=== PATIENT | male | born 1995 | race Caucasian/White ===

== ENCOUNTER 2020-03-29 22:24 | Inpatient (IN) | payer OTHER ==
[2020-03-29 23:32] VITALS: BMI 32.9
--- NOTE | 2020-03-29 23:43 | HP ---
COWS - Scale Resting Pulse: 1= [place] 81-100 Sweatin= Chills/Flushing Restless Observation: 0= Sits Still Pupil Size: 0= Normal to Room Light Bone or Joint Aches: 2= Severe Diffuse Aches Runny Nose/ Eye Tearin= None GI Upset > 30mins: 3= Vomiting/Diarrhea (vomiting x 4, no diarrhea) Tremor Observation: 2= Slight Tremor Visible Yawning Observation: 0= None Anxiety or Irritability: 2=Irritable/Anxious Goose Flesh Skin: 0=Smooth Skin COWS Score: 11 CIWA Score - Admission Criteria OASAS Guidelines: Admission for Medically Managed Detox: Requires at least one of the followin. CIWA greater than 12 2. Seizures within the past 24 hours 3. Delirium tremens within the past 24 hours 4. Hallucinations within the past 24 hours 5. Acute intervention needed for co occurring medical disorder 6. Acute intervention needed for co occurring psychiatric disorder 7. Severe withdrawal that cannot be handled at a lower level of care (continued vomiting, continued diarrhea, abnormal vital signs) requiring intravenous medication and/or fluids 8. Admission ROS [facility] Chief Complaint: seeking admission to detox from heroin Allergies/Adverse Reactions: Allergies Allergy/AdvReac Type Severity Reaction Status Date / Time No Known Allergies Allergy Verified 04/07/19 14:21 History of Present Illness: 24 years old male is seeking admission to detox. This is his first admission to [facility]. He reports that he is in the [facility] outpatient program and does not want to continue with suboxone program. He reports that his counselor, Mr. dario Calvillo notified the program that he will not continue His urine is positive for FEN and MOP. He reports use of 2o bags heroin intravenously. He has medical history Hep. C, eczema and psych. history of depression, ADHD, PTSD and anxiety. He reports suicide attempt at age 12 and denies suicidal ideation at this time. He is unemployed, lives with his parents and denies legal issues. He reports that he overdosed 3 times, last time he overdosed was 2 days ago ( 03/27/2020). He has multiple scabs in the right hand from picking his skin. Exam Limitations: No Limitations - Ebola screening Have you traveled outside of the country in the last 21 days: No Have you had contact with anyone from an Ebola affected area: No Have you been sick,other than usual withdrawal symptoms: No Do you have a fever: No - Review of Systems Constitutional: Chills, Malaise, Night Sweats, Changes in sleep EENT: reports: No Symptoms Reported Respiratory: reports: No Symptoms reported Cardiac: reports: No Symptoms Reported GI: reports: Poor Appetite, Poor Fluid Intake, Vomiting, Abdominal cramping : reports: No Symptoms Reported Musculoskeletal: reports: Back Pain Integumentary: reports: Dryness, Flushing Neuro: reports: No Symptoms reported, Headache, Tremors Endocrine: reports: No Symptoms Reported Hematology: reports: No Symptoms Reported Psychiatric: reports: Mood/Affect Appropiate, Orientated x3, Anxious, Depressed Other Systems: Reviewed and Negative Patient History - Patient Medical History Hx Anemia: No Hx Asthma: No Hx Chronic Obstructive Pulmonary Disease (COPD): No Hx Cancer: No Hx Cardiac Disorders: No Hx Congestive Heart Failure: No Hx Hypertension: No Hx Hypercholesterolemia: No Hx Pacemaker: No HX Cerebrovascular Accident: No Hx Seizures: No Hx Dementia: No Hx Diabetes: No Hx Gastrointestinal Disorders: No Hx Liver Disease: Yes (Hepo. C) Hx Genitourinary Disorders: No Hx Sexually Transmitted Disorders: No Hx Renal Disease (ESRD): No Hx Thyroid Disease: No Hx Human Immunodeficiency Virus (HIV): No (Negative 2020) Hx Hepatitis C: Yes (Not treated) Hx Depression: Yes (+ PTSD, ADD, Anxiety) Hx Suicide Attempt: Yes (Attempt at age 12, denies suicidal ideation at this time) Hx Bipolar Disorder: No Hx Schizophrenia: No Other Medical History: Eczema - Patient Surgical History Past Surgical History: No - PPD History Previous Implant?: Yes Documented Results: Negative w/o proof Implanted On Prior [facility] Admission?: No PPD to be Administered?: Yes - Reproductive History Patient is a Female of Child Bearing Age (11 -55 yrs old): No - Smoking Cessation Smoking history: Current every day smoker Have you smoked in the past 12 months: Yes Aproximately how many cigarettes per day: 10 Hx Chewing Tobacco Use: No Initiated information on smoking cessation: Yes 'Breaking Loose' booklet given: 03/30/20 - Substance & Tx. History Hx Alcohol Use: No Hx Substance Use: Yes Substance Use Type: Heroin Hx Substance Use Treatment: No - Substances abused Heroin Substance route: Injection Frequency: Daily Amount used: 20 bags Age of first use: 19 Date of last use: 03/29/20 Admission Physical Exam [facility] - Vital Signs Vital Signs: Vital Signs - 24 hr 03/29/20 23:28 Temperature 98.1 F Pulse Rate 90 Respiratory 18 Rate Blood Pressure 128/80 - Physical General Appearance: Yes: Moderate Distress, Tremorous, Sweating, Anxious HEENTM: Yes: Within Normal Limits Respiratory: Yes: Lungs Clear, Normal Breath Sounds, No Respiratory Distress Neck: Yes: Within Normal Limits Breast: Yes: Breast Exam Deferred Cardiology: Yes: Regular Rhythm, Regular Rate Abdominal: Yes: Normal Bowel Sounds, Protuberent Genitourinary: Yes: Within Normal Limits Back: Yes: Normal Inspection Musculoskeletal: Yes: Back pain Extremities: Yes: Tremors Neurological: Yes: Within Normal Limits Integumentary: Yes: Warm Lymphatic: Yes: Within Normal Limits - Diagnostic (1) Opioid dependence with withdrawal Current Visit: Yes Status: Acute (2) Hepatitis C Current Visit: Yes Status: Chronic Qualifiers: Viral hepatitis chronicity: unspecified (3) Eczema Current Visit: Yes Status: Chronic Qualifiers: Eczema type: unspecified Qualified Code(s): L30.9 - Dermatitis, unspecified (4) PTSD (post-traumatic stress disorder) Current Visit: Yes Status: Chronic (5) Depression Current Visit: Yes Status: Chronic Qualifiers: Depression Type: unspecified Qualified Code(s): F32.9 - Major depressive disorder, single episode, unspecified (6) ADHD Current Visit: Yes Status: Chronic (7) Nicotine dependence Current Visit: Yes Status: Chronic Qualifiers: Nicotine product type: unspecified Cleared for Admission [facility] - Detox or Rehab [facility] Level of Care: Medically Managed Detox Regimen/Protocol: Methadone Claeared for Rehab Admission: No Breathalyzer - Breathalyzer Breathalyzer: 0 Urine Drug Screen - Test Device Lot number: [id number] Expiration date: 11/30/21 - Control Is test valid?: Yes - Results Drug screen NEGATIVE: No Urine drug screen results: FEN-Fentanyl, MOP-Opiates Inpatient Rehab Admission - Rehab Decision to Admit Inpatient rehab admission?: No
[2020-03-30] MEDS ORDERED: BISMUTH SUBSALICYLATE 524 MG/30 ML UD PO PRN (00:10)
[2020-03-30] MEDS ORDERED: MAG HYDROX/AL HYDROX/SIMETH 30 ML UNIT-DOSE CUP PO PRN (00:10)
[2020-03-30] MEDS ORDERED: MAGNESIUM HYDROX 2400MG/30ML ORAL SUSPENSION 30 ML CUP PO PRN (00:10)
[2020-03-30] MEDS ORDERED: MAGNESIUM CITRATE 300 ML BOTTLE PO PRN (00:10)
[2020-03-30] MEDS ORDERED: METHADONE HCL 10 MG TABLET (FOR DETOX USE ONLY) PO ONE (00:10)
[2020-03-30] MEDS ORDERED: ACETAMINOPHEN 325 MG TABLET (FP) PO PRN (00:10)
[2020-03-30] MEDS ORDERED: MENTHOL/PHENOL 1 EACH UD MM PRN (00:10)
[2020-03-30] MEDS ORDERED: cloNIDine HCL 0.1 MG TABLET PO PRN (00:10)
[2020-03-30] MEDS ORDERED: ONDANSETRON *ODT* 4 MG TABLET SL ONE (00:10)
[2020-03-30] MEDS: ACETAMINOPHEN 325 MG TABLET (FP) PO PRN (01:05)
--- NOTE | 2020-03-30 10:38 | PN ---
BHS COWS - Scale Resting Pulse: 0= [place] 80 or Below Sweatin= Chills/Flushing Restless Observation: 1= Difficult to Sit Still Pupil Size: 0= Normal to Room Light Bone or Joint Aches: 2= Severe Diffuse Aches Runny Nose/ Eye Tearin= Nasal Congestion GI Upset > 30mins: 0= None Tremor Observation of Outstretched Hands: 1= Tremor [place], Not Seen Yawning Observation: 1= 1-2x During Session Anxiety or Irritability: 1=Feels Anxious/Irritable Goose Flesh Skin: 0=Smooth Skin COWS Score: 8 BHS Progress Note (SOAP) Subjective: I have an annoying cough sweats shakes interrupted sleep nausea Objective: 03/30/20 12:49 Vital Signs Temperature 97.3 F L 03/30/20 05:30 Pulse Rate 78 03/30/20 05:30 Respiratory Rate 20 03/30/20 05:30 Blood Pressure 103/57 L 03/30/20 05:30 O2 Sat by Pulse Oximetry (%) 99 03/30/20 05:30 labs pending [id number] ambulating no acute distress Assessment: 03/30/20 12:49 withdrawals Plan: lungs assessed CTA encourage water intake valium prn zofran sl prn continue detox
[2020-03-30] MEDS: PRENATAL VITAMINS W/ FOLIC ACID TABLET (FP) PO SCH (10:42)
[2020-03-30] MEDS: NICOTINE 14 MG/24 HOURS TOPICAL PATCH TD SCH (10:42)
[2020-03-30] MEDS: NICOTINE POLACRILEX 2 MG GUM BUC PRN ×2 (10:43→17:19)
[2020-03-30] MEDS: BACITRACIN 15 GM TUBE TOPICAL OINTMENT TP SCH ×2 (11:43→22:25)
[2020-03-30] MEDS: diazePAM 5 MG TABLET PO PRN ×2 (12:52→22:04)
[2020-03-30] MEDS: METHOCARBAMOL 500 MG TABLET PO PRN ×2 (12:52→22:12)
[2020-03-30] MEDS: ONDANSETRON *ODT* 4 MG TABLET SL PRN ×2 (12:53→22:04)
--- NOTE | 2020-03-30 14:56 | EKG ---
Test Reason : Blood Pressure : / mmHG Vent. Rate : 079 BPM Atrial Rate : 079 BPM P-R Int : 160 ms QRS Dur : 096 ms QT Int : 352 ms P-R-T Axes : 049 011 041 degrees QTc Int : 403 ms NORMAL SINUS RHYTHM NORMAL ECG NO PREVIOUS ECGS AVAILABLE Confirmed by LIOR AMARAL MD ([id number]) on 03/30/2020 2:55:59 PM Referred By: Kd Mckeon Confirmed By:LIOR AMARAL MD
[2020-03-30] MEDS: THIAMINE HCL 100 MG TABLET (FP) PO SCH (22:04)
[2020-03-30] MEDS: MELATONIN 5 MG TABLETS PO SCH (22:05)
[2020-03-31] MEDS: diazePAM 5 MG TABLET PO PRN ×3 (05:33→22:04)
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
[2020-03-31] MEDS ORDERED: METHADONE HCL 5 MG TABLET (FOR DETOX USE ONLY) ONE (09:50)
[2020-03-31] MEDS ORDERED: METHADONE HCL 10 MG TABLET (FOR DETOX USE ONLY) ONE (09:51)
[2020-03-31] MEDS ORDERED: METHADONE (DETOX) 20 MG, METHADONE (DETOX) 5 MG PO ONE (10:00)
[2020-03-31] MEDS: PRENATAL VITAMINS W/ FOLIC ACID TABLET (FP) PO SCH (10:27)
[2020-03-31] MEDS: NICOTINE 14 MG/24 HOURS TOPICAL PATCH TD SCH (10:27)
[2020-03-31] MEDS: BACITRACIN 15 GM TUBE TOPICAL OINTMENT TP SCH ×2 (10:27→22:04)
[2020-03-31] MEDS: ACETAMINOPHEN 325 MG TABLET (FP) PO PRN (10:29)
[2020-03-31 10:52] LABS: HEMATOCRIT 41.5 % (35.4-49); HEMOGLOBIN 13.8 GM/dL (11.7-16.9); MCH 30.3 pg (25.7-33.7); MCHC 33.2 g/dl (32.0-35.9); MEAN CELL VOLUME 91.3 fl (80-96); MEAN PLT VOLUME 7.6 fl (7.5-11.1); PLATELET COUNT 250 K/MM3 (134-434); RBC 4.55 M/mm3 (4.00-5.60); RDW 13.2 % (11.9-15.9); WHITE BLOOD COUNT 6.4 K/mm3 (4.0-10.0)
[2020-03-31 11:12] LABS: ALBUMIN 3.4 g/dl (3.4-5.0); BILIRUBIN,TOTAL 0.3 mg/dL (0.2-1); CALCIUM 8.9 mg/dL (8.5-10.1); CREATININE 0.8 mg/dL (0.55-1.3); POTASSIUM 4.3 mmol/L (3.5-5.1); TOT PROT 6.5 g/dl (6.4-8.2)
[2020-03-31 11:13] LABS: BLOOD UREA NITROGEN 8.7 mg/dL (7-18)
[2020-03-31] MEDS: IBUPROFEN 400 MG TABLET (FP) PO PRN (16:52)
[2020-03-31] MEDS: MELATONIN 5 MG TABLETS PO SCH (22:04)
[2020-03-31] MEDS: THIAMINE HCL 100 MG TABLET (FP) PO SCH (22:04)
[2020-03-31] MEDS: METHOCARBAMOL 500 MG TABLET PO PRN (22:04)
[2020-03-31] MEDS: MIRTAZAPINE 15 MG TABLET (FP) PO SCH (22:04)
[2020-04-01] MEDS ORDERED: METHADONE HCL 10 MG TABLET (FOR DETOX USE ONLY) PO ONE (10:00)
[2020-04-01] MEDS: BACITRACIN 15 GM TUBE TOPICAL OINTMENT TP SCH ×2 (10:58→22:12)
[2020-04-01] MEDS: NICOTINE 14 MG/24 HOURS TOPICAL PATCH TD SCH (10:58)
[2020-04-01] MEDS: PRENATAL VITAMINS W/ FOLIC ACID TABLET (FP) PO SCH (10:59)
[2020-04-01] MEDS: ONDANSETRON *ODT* 4 MG TABLET SL PRN (11:02)
--- NOTE | 2020-04-01 13:23 | PN ---
BHS COWS - Scale Resting Pulse: 0= [place] 80 or Below Sweatin= Chills/Flushing Restless Observation: 1= Difficult to Sit Still Pupil Size: 0= Normal to Room Light Bone or Joint Aches: 2= Severe Diffuse Aches Runny Nose/ Eye Tearin= None GI Upset > 30mins: 0= None Tremor Observation of Outstretched Hands: 2= Slight Tremor Visible Yawning Observation: 0= None Anxiety or Irritability: 1=Feels Anxious/Irritable Goose Flesh Skin: 0=Smooth Skin COWS Score: 7 BHS Progress Note (SOAP) Subjective: Complaints of chills, anxiety, body aches, and sweats. Objective: 04/01/20 13:22 Vital Signs 04/01/20 04/01/20 06:10 09:12 Temperature 97.5 F L 97.1 F L Pulse Rate 71 56 L Respiratory 16 18 Rate Blood Pressure 115/62 112/68 O2 Sat by Pulse 99 99 Oximetry (%) Laboratory Last Values WBC 6.4 K/mm3 (4.0-10.0) 03/31/20 07:30 RBC 4.55 M/mm3 (4.00-5.60) 03/31/20 07:30 Hgb 13.8 GM/dL (11.7-16.9) 03/31/20 07:30 Hct 41.5 % (35.4-49) 03/31/20 07:30 MCV 91.3 fl (80-96) 03/31/20 07:30 MCH 30.3 pg (25.7-33.7) 03/31/20 07:30 MCHC 33.2 g/dl (32.0-35.9) 03/31/20 07:30 RDW 13.2 % (11.9-15.9) 03/31/20 07:30 Plt Count 250 K/MM3 (134-434) 03/31/20 07:30 MPV 7.6 fl (7.5-11.1) 03/31/20 07:30 Sodium 140 mmol/L (136-145) 03/31/20 07:30 Potassium 4.3 mmol/L (3.5-5.1) 03/31/20 07:30 Chloride 106 mmol/L (98-107) 03/31/20 07:30 Carbon Dioxide 31 mmol/L (21-32) 03/31/20 07:30 Anion Gap 2 MMOL/L (8-16) L 03/31/20 07:30 BUN 8.7 mg/dL (7-18) 03/31/20 07:30 Creatinine 0.8 mg/dL (0.55-1.3) 03/31/20 07:30 Est GFR (CKD-EPI)AfAm 143.90 03/31/20 07:30 Est GFR (CKD-EPI)NonAf 124.16 03/31/20 07:30 Random Glucose 89 mg/dL (74-106) 03/31/20 07:30 Calcium 8.9 mg/dL (8.5-10.1) 03/31/20 07:30 Total Bilirubin 0.3 mg/dL (0.2-1) 03/31/20 07:30 AST 17 U/L (15-37) 03/31/20 07:30 ALT 23 U/L (13-61) 03/31/20 07:30 Alkaline Phosphatase 89 U/L (45-117) 03/31/20 07:30 Total Protein 6.5 g/dl (6.4-8.2) 03/31/20 07:30 Albumin 3.4 g/dl (3.4-5.0) 03/31/20 07:30 Syphilis Serology Non-reactive (NONREACTIVE) 03/31/20 07:30 COVID-19 (PETRONA) Not detected (Not Detected) 03/30/20 00:05 Labs noted. Assessment: 04/01/20 13:23 Alert and oriented x3, in no acute respiratory distress. Full ROM, ambulating in hallway without assistance. Skin warm to touch with no lesions noted. Withdrawal symptoms. Plan: Continue detox protocol.
[2020-04-01] MEDS: IBUPROFEN 400 MG TABLET (FP) PO PRN (18:15)
[2020-04-01] MEDS: diazePAM 5 MG TABLET PO PRN (22:08)
[2020-04-01] MEDS: METHOCARBAMOL 500 MG TABLET PO PRN (22:08)
[2020-04-01] MEDS: THIAMINE HCL 100 MG TABLET (FP) PO SCH (22:09)
[2020-04-01] MEDS: MIRTAZAPINE 15 MG TABLET (FP) PO SCH (22:09)
[2020-04-01] MEDS: MELATONIN 5 MG TABLETS PO SCH (22:09)
[2020-04-02] MEDS ORDERED: METHADONE HCL 5 MG TABLET (FOR DETOX USE ONLY) ONE (09:07)
[2020-04-02] MEDS ORDERED: METHADONE HCL 10 MG TABLET (FOR DETOX USE ONLY) ONE (09:08)
[2020-04-02] MEDS ORDERED: METHADONE (DETOX) 10 MG, METHADONE (DETOX) 5 MG PO ONE (10:00)
[2020-04-02] MEDS: NICOTINE 14 MG/24 HOURS TOPICAL PATCH TD SCH (10:09)
[2020-04-02] MEDS: PRENATAL VITAMINS W/ FOLIC ACID TABLET (FP) PO SCH (10:09)
[2020-04-02] MEDS: BACITRACIN 15 GM TUBE TOPICAL OINTMENT TP SCH ×2 (10:09→21:49)
--- NOTE | 2020-04-02 12:57 | PN ---
BHS COWS - Scale Resting Pulse: 0= [place] 80 or Below Sweatin=Flushed/Facial Moisture Restless Observation: 1= Difficult to Sit Still Pupil Size: 2= Moderately Dilated Bone or Joint Aches: 1= Mild Discomfort Runny Nose/ Eye Tearin= Nasal Congestion GI Upset > 30mins: 0= None Tremor Observation of Outstretched Hands: 0= None Yawning Observation: 0= None Anxiety or Irritability: 2=Irritable/Anxious Goose Flesh Skin: 0=Smooth Skin COWS Score: 9 BHS Progress Note (SOAP) Subjective: PATIENT ADMITTED FOR OPIOD WITHDRAWAL SX. TREATED WITH SUBOXONE MAT AT [facility] BUT RELAPSED LAST WEEK. PATIENT STATES HE DOES NOT WANT TO CONTINUE ON SUBOXONE AND WOULD LIKE TO START MAINTENANCE MTD UPON DISCHARGE. REFERRED TO COUNSELOR FOR REFERRAL. ROS: " I FEEL BETTER, JUST HAVE SOME ANXIETY, BODY ACHES AND SWEATS". Objective: 04/02/20 12:55 Vital Signs Temperature 97.5 F L 04/02/20 08:37 Pulse Rate 55 L 04/02/20 08:37 Respiratory Rate 18 04/02/20 08:37 Blood Pressure 112/66 04/02/20 08:37 O2 Sat by Pulse Oximetry (%) 99 04/02/20 08:37 Laboratory Tests 03/30/20 03/31/20 03/31/20 00:05 07:30 07:30 WBC 6.4 RBC 4.55 Hgb 13.8 Hct 41.5 MCV 91.3 MCH 30.3 MCHC 33.2 RDW 13.2 Plt Count 250 MPV 7.6 Sodium Potassium Chloride Carbon Dioxide Anion Gap BUN Creatinine Est GFR (CKD-EPI)AfAm Est GFR (CKD-EPI)NonAf Random Glucose Calcium Total Bilirubin AST ALT Alkaline Phosphatase Total Protein Albumin Syphilis Serology Non-reactive COVID-19 (PETRONA) Not detected 03/31/20 07:30 WBC RBC Hgb Hct MCV MCH MCHC RDW Plt Count MPV Sodium 140 Potassium 4.3 Chloride 106 Carbon Dioxide 31 Anion Gap 2 L BUN 8.7 Creatinine 0.8 Est GFR (CKD-EPI)AfAm 143.90 Est GFR (CKD-EPI)NonAf 124.16 Random Glucose 89 Calcium 8.9 Total Bilirubin 0.3 AST 17 ALT 23 Alkaline Phosphatase 89 Total Protein 6.5 Albumin 3.4 Syphilis Serology COVID-19 (PETRONA) PE ALERT AND ORIENTED X 3 SKIN WARM, +FACIAL MOISTURE EOMS INTACT BL NECK SUPPLE, NO JVD EXT FULL ROM, AMB AD NORI ANXIOUS/RESTLESS Assessment: 04/02/20 12:57 WITHDRAWAL SX (OPIOD) Plan: CONTINUE DETOX
[2020-04-02] MEDS: METHOCARBAMOL 500 MG TABLET PO PRN (19:18)
[2020-04-02] MEDS: hydrOXYzine PAMOATE 50 MG CAPSULE (FP) PO PRN (20:16)
[2020-04-02] MEDS: MELATONIN 5 MG TABLETS PO SCH (21:35)
[2020-04-02] MEDS: THIAMINE HCL 100 MG TABLET (FP) PO SCH (21:35)
[2020-04-02] MEDS: MIRTAZAPINE 15 MG TABLET (FP) PO SCH (21:35)
[2020-04-03] MEDS ORDERED: METHADONE HCL 10 MG TABLET (FOR DETOX USE ONLY) PO ONE (10:00)
[2020-04-03] MEDS: NICOTINE 14 MG/24 HOURS TOPICAL PATCH TD SCH (10:06)
[2020-04-03] MEDS: BACITRACIN 15 GM TUBE TOPICAL OINTMENT TP SCH (10:06)
[2020-04-03] MEDS: PRENATAL VITAMINS W/ FOLIC ACID TABLET (FP) PO SCH (10:06)
[2020-04-03] MEDS: hydrOXYzine PAMOATE 50 MG CAPSULE (FP) PO PRN (10:07)
[2020-04-03 10:53] VITALS: BP 125/67; PULSE 60; TEMP 97.3
--- NOTE | 2020-04-03 13:33 | PN ---
BHS COWS - Scale Resting Pulse: 0= [place] 80 or Below Sweatin= No chills or Flushing Restless Observation: 0= Sits Still Pupil Size: 0= Normal to Room Light Bone or Joint Aches: 0= None Runny Nose/ Eye Tearin= None GI Upset > 30mins: 0= None Tremor Observation of Outstretched Hands: 0= None Yawning Observation: 0= None Anxiety or Irritability: 1=Feels Anxious/Irritable Goose Flesh Skin: 0=Smooth Skin COWS Score: 1 BHS Progress Note (SOAP) Subjective: alert,no complaint Objective: 04/03/20 13:30 Vital Signs Temperature 97.3 F L 04/03/20 08:38 Pulse Rate 60 04/03/20 08:38 Respiratory Rate 18 04/03/20 08:38 Blood Pressure 125/67 04/03/20 08:38 O2 Sat by Pulse Oximetry (%) 97 04/03/20 05:50 Assessment: 04/03/20 13:31 no withdrawal symptom Plan: stable for discharge today,follow up with mat as arrangement
--- NOTE | 2020-04-03 13:37 | DS ---
[facility] Detox Discharge Summary Admission Date: 03/29/20 Discharge Date: 04/03/20 - History Present History: Opioid Dependence Additional Comments: alert,oriented x 3 ambulation on the unit lung clear on auscultation bilaterally abdomen soft,no distension,no pain or tenderness no swelling both legs patient is stable for discharge today follow up with after care program mat as arrangement total time for discharge 35 minutes Pertinent Past History: nicotine dependence hepatitis c ptsd adhd - Physical Exam Results Vital Signs: Vital Signs Temperature 97.3 F L 04/03/20 08:38 Pulse Rate 60 04/03/20 08:38 Respiratory Rate 18 04/03/20 08:38 Blood Pressure 125/67 04/03/20 08:38 O2 Sat by Pulse Oximetry (%) 97 04/03/20 05:50 Laboratory Last Values WBC 6.4 K/mm3 (4.0-10.0) 03/31/20 07:30 RBC 4.55 M/mm3 (4.00-5.60) 03/31/20 07:30 Hgb 13.8 GM/dL (11.7-16.9) 03/31/20 07:30 Hct 41.5 % (35.4-49) 03/31/20 07:30 MCV 91.3 fl (80-96) 03/31/20 07:30 MCH 30.3 pg (25.7-33.7) 03/31/20 07:30 MCHC 33.2 g/dl (32.0-35.9) 03/31/20 07:30 RDW 13.2 % (11.9-15.9) 03/31/20 07:30 Plt Count 250 K/MM3 (134-434) 03/31/20 07:30 MPV 7.6 fl (7.5-11.1) 03/31/20 07:30 Sodium 140 mmol/L (136-145) 03/31/20 07:30 Potassium 4.3 mmol/L (3.5-5.1) 03/31/20 07:30 Chloride 106 mmol/L (98-107) 03/31/20 07:30 Carbon Dioxide 31 mmol/L (21-32) 03/31/20 07:30 Anion Gap 2 MMOL/L (8-16) L 03/31/20 07:30 BUN 8.7 mg/dL (7-18) 03/31/20 07:30 Creatinine 0.8 mg/dL (0.55-1.3) 03/31/20 07:30 Est GFR (CKD-EPI)AfAm 143.90 03/31/20 07:30 Est GFR (CKD-EPI)NonAf 124.16 03/31/20 07:30 Random Glucose 89 mg/dL (74-106) 03/31/20 07:30 Calcium 8.9 mg/dL (8.5-10.1) 03/31/20 07:30 Total Bilirubin 0.3 mg/dL (0.2-1) 03/31/20 07:30 AST 17 U/L (15-37) 03/31/20 07:30 ALT 23 U/L (13-61) 03/31/20 07:30 Alkaline Phosphatase 89 U/L (45-117) 03/31/20 07:30 Total Protein 6.5 g/dl (6.4-8.2) 03/31/20 07:30 Albumin 3.4 g/dl (3.4-5.0) 03/31/20 07:30 Syphilis Serology Non-reactive (NONREACTIVE) 03/31/20 07:30 COVID-19 (PETRONA) Not detected (Not Detected) 03/30/20 00:05 Vital Signs Temperature 97.3 F L 04/03/20 08:38 Pulse Rate 60 04/03/20 08:38 Respiratory Rate 18 04/03/20 08:38 Blood Pressure 125/67 04/03/20 08:38 O2 Sat by Pulse Oximetry (%) 97 04/03/20 05:50 Pertinent Admission Physical Exam Findings: withdrawal signs and symptom Laboratory Last Values WBC 6.4 K/mm3 (4.0-10.0) 03/31/20 07:30 RBC 4.55 M/mm3 (4.00-5.60) 03/31/20 07:30 Hgb 13.8 GM/dL (11.7-16.9) 03/31/20 07:30 Hct 41.5 % (35.4-49) 03/31/20 07:30 MCV 91.3 fl (80-96) 03/31/20 07:30 MCH 30.3 pg (25.7-33.7) 03/31/20 07:30 MCHC 33.2 g/dl (32.0-35.9) 03/31/20 07:30 RDW 13.2 % (11.9-15.9) 03/31/20 07:30 Plt Count 250 K/MM3 (134-434) 03/31/20 07:30 MPV 7.6 fl (7.5-11.1) 03/31/20 07:30 Sodium 140 mmol/L (136-145) 03/31/20 07:30 Potassium 4.3 mmol/L (3.5-5.1) 03/31/20 07:30 Chloride 106 mmol/L (98-107) 03/31/20 07:30 Carbon Dioxide 31 mmol/L (21-32) 03/31/20 07:30 Anion Gap 2 MMOL/L (8-16) L 03/31/20 07:30 BUN 8.7 mg/dL (7-18) 03/31/20 07:30 Creatinine 0.8 mg/dL (0.55-1.3) 03/31/20 07:30 Est GFR (CKD-EPI)AfAm 143.90 03/31/20 07:30 Est GFR (CKD-EPI)NonAf 124.16 03/31/20 07:30 Random Glucose 89 mg/dL (74-106) 03/31/20 07:30 Calcium 8.9 mg/dL (8.5-10.1) 03/31/20 07:30 Total Bilirubin 0.3 mg/dL (0.2-1) 03/31/20 07:30 AST 17 U/L (15-37) 03/31/20 07:30 ALT 23 U/L (13-61) 03/31/20 07:30 Alkaline Phosphatase 89 U/L (45-117) 03/31/20 07:30 Total Protein 6.5 g/dl (6.4-8.2) 03/31/20 07:30 Albumin 3.4 g/dl (3.4-5.0) 03/31/20 07:30 Syphilis Serology Non-reactive (NONREACTIVE) 03/31/20 07:30 COVID-19 (PETRONA) Not detected (Not Detected) 03/30/20 00:05 Vital Signs Temperature 97.3 F L 04/03/20 08:38 Pulse Rate 60 04/03/20 08:38 Respiratory Rate 18 04/03/20 08:38 Blood Pressure 125/67 04/03/20 08:38 O2 Sat by Pulse Oximetry (%) 97 04/03/20 05:50 - Treatment Hospital Course: Detox Protocol Followed, Detoxed Safely, Responded well, Discharged Condition Good Patient has Accepted a Rehab Referral to: declined - Medication Discharge Medications: Ambulatory Orders Naloxone HCl [Narcan] 4 mg NS ONCE PRN #1 spray 10/20/19 Nicotine Polacrilex [Nicotine Gum] 4 mg BC Q2H PRN #1 box 12/01/19 Nicotine [Nicotine Patch 21 mg/24 hr] 1 each TD DAILY #30 patch.td24 12/01/19 Sennosides [Senna] 2 tab PO DAILY 12/01/19 Buprenorphine/Naloxone [Suboxone 8Mg/2Mg Sl Film -] 1 each SL BID #30 packet MDD 16mg 12/15/19 Buprenorphine/Naloxone [Suboxone 8Mg/2Mg Sl Film -] 1 each SL BID #30 packet MDD 16mg 01/12/20 Buprenorphine/Naloxone [Suboxone 8Mg/2Mg Sl Film -] 1 each SL BID #30 packet MDD 16mg 03/08/20 Polyethylene Glycol 3350 [Miralax (For Daily Use) -] 17 gm PO DAILY #1 bottle 03/08/20 traZODone HCL [Desyrel -] 50 mg PO HS #7 tablet 03/08/20 Buprenorphine/Naloxone [Suboxone 8Mg/2Mg Sl Film -] 1 each SL BID #30 packet MDD 16mg 03/15/20 - Diagnosis (1) Opioid dependence with withdrawal Status: Acute (2) Nicotine dependence Status: Chronic Qualifiers: Nicotine product type: unspecified (3) PTSD (post-traumatic stress disorder) Status: Chronic (4) Hepatitis C Status: Resolved Qualifiers: Viral hepatitis chronicity: unspecified - AMA Did Patient Leave Against Medical Advice: No
[2020-04-04] MEDS ORDERED: METHADONE HCL 5 MG TABLET (FOR DETOX USE ONLY) PO ONE (06:00)
== END 2020-04-03 10:26 | disposition home or self-care (01) | DRG 773 ==
LOC: YASAS 22:24 → Y6N 23:48
PROVIDERS: ADMIT Allergy & Immunology; ATTEND Allergy & Immunology
PROC: HZ2ZZZZ Detoxification Services for Substance Abuse Treatment (ICD-10-PCS; principal; 2020-03-29)
DX: F11.23 Opioid dependence with withdrawal (principal); F17.210 Nicotine dependence, cigarettes, uncomplicated; F43.10 Post-traumatic stress disorder, unspecified; F90.9 Attention-deficit hyperactivity disorder, unspecified type; F19.280 Other psychoactive substance dependence with psychoactive substance-induced anxiety disorder; F19.282 Other psychoactive substance dependence with psychoactive substance-induced sleep disorder; L30.9 Dermatitis, unspecified; Z86.79 Personal history of other diseases of the circulatory system; Z62.810 Personal history of physical and sexual abuse in childhood; Z56.0 Unemployment, unspecified; Z91.5 Personal history of self-harm
CPT/HCPCS: 36415; 80053; 85027; 86780; 93005; 93010; J0735; Q0162; U0003